=== PATIENT | male | born 1990 | race Caucasian/White ===

== ENCOUNTER 2016-11-04 19:48 | Emergency (ER) | payer OTHER ==
[2016-11-04 20:03] VITALS: BP 148/75; PULSE 75; TEMP 98.7; BMI 24.7
--- NOTE | 2016-11-04 21:55 | PDOC ---
History of Present Illness - General Chief Complaint: Abscess Boil Stated Complaint: Abscess Boil Time Seen by Provider: 11/04/16 21:30 History Source: Patient Exam Limitations: No Limitations - History of Present Illness Initial Comments: 11/04/16 21:47 CC RASH TO LOWER LIP AFTER NICKING IT WHILE SHAVING X 4 DAYS AGO Past History - Past Medical History Allergies/Adverse Reactions: Allergies Allergy/AdvReac Type Severity Reaction Status Date / Time dust AdvReac Uncoded 11/04/16 20:04 seasonal allergies AdvReac Uncoded 11/04/16 20:04 Home Medications: Ambulatory Orders Clonazepam 0.5 mg PO ASDIR 01/07/14 Fluoxetine HCl [Prozac] 20 mg PO DAILY 01/07/14 Psychiatric Problems: Yes (depression/anxiety) - Psycho/Social/Smoking Cessation Hx Anxiety: Yes Suicidal Ideation: No Smoking History: Never smoked Have you smoked in the past 12 months: No Information on smoking cessation initiated: No Hx Alcohol Use: No Drug/Substance Use Hx: No Substance Use Type: None Review of Systems - Review of Systems Constitutional: No: Symptoms Reported HEENTM: Yes: Mouth Swelling. No: Symptoms Reported Respiratory: No: Symptoms reported *Physical Exam - Vital Signs Last Vital Signs Temp Pulse Resp BP Pulse Ox 98.7 F 75 18 148/75 100 11/04/16 20:00 11/04/16 20:00 11/04/16 20:00 11/04/16 20:00 11/04/16 20:00 - Physical Exam General Appearance: Yes: Appropriately Dressed. No: Apparent Distress HEENT: positive: Other (CRUSTED LESION TO AREA JUST INFERIOR RIGHT CENTER LOWER LIP MARGIN IN GERARD AREA) Neck: negative: Lymphadenopathy (R), Lymphadenopathy (L) Respiratory/Chest: positive: Lungs Clear Medical Decision Making - Medical Decision Making 11/04/16 21:49 NO HX OF HERPES SIMPLEX; APPEARS TO BE INFECTED WOUND OPPOSED TO *DC/Admit/Observation/Transfer Diagnosis at time of Disposition: Abrasion of face with infection Qualifiers: Encounter type: initial encounter Qualified Code(s): S10.81XA - Abrasion of other specified part of neck, initial encounter; L08.9 - Local infection of the skin and subcutaneous tissue, unspecified - Discharge Dispostion Disposition: HOME Condition at time of disposition: Stable Admit: No - Referrals Referrals: Man Soler MD [Primary Care Provider] - - Patient Instructions Additional Instructions: WOUND CHECK IN 2 DAYS
== END 2016-11-04 22:03 | disposition home or self-care (01) ==
LOC: JERFT 19:48
DX: S00.511A Abrasion of lip, initial encounter (principal); L08.9 Local infection of the skin and subcutaneous tissue, unspecified; W26.0XXA Contact with knife, initial encounter; Y93.E8 Activity, other personal hygiene; Y92.9 Unspecified place or not applicable
CPT/HCPCS: 99281-25

== ENCOUNTER 2016-12-10 23:04 | Emergency (ER) | payer OTHER ==
[2016-12-10] MEDS ORDERED: IBUPROFEN 600 MG TABLET (FP) PO ONE (23:15)
--- NOTE | 2016-12-10 23:15 | PDOC ---
History of Present Illness - General Chief Complaint: Sore Throat Stated Complaint: FEVER Time Seen by Provider: 12/10/16 23:14 History Source: Patient Exam Limitations: No Limitations - History of Present Illness Initial Comments: 12/10/16 23:19 26-year-old male with no medical history presents to the emergency department complaining of a sore throat with subjective fever since approximately 1400 hrs. yesterday. Patient states his fever is making him exhausted but otherwise he denies headache, dizziness, lightheadedness, visual disturbance, neck pain, back pains, chest pain, shortness of breath, abdominal pains. Patient took 200 of Motrin at approximately 2200 hrs. this evening. 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 Timing/Duration: 24 hours Severity: mild Associated Symptoms: reports: fever/chills, malaise Past History - Past Medical History Allergies/Adverse Reactions: Allergies Allergy/AdvReac Type Severity Reaction Status Date / Time No Known Drug Allergies Allergy Verified 12/10/16 23:46 dust AdvReac Uncoded 12/10/16 23:13 seasonal allergies AdvReac Uncoded 12/10/16 23:13 Home Medications: Ambulatory Orders Amoxicillin - [Amoxicillin 875mg Tablet -] 875 mg PO BID #20 tablet 12/10/16 Psychiatric Problems: Yes (depression/anxiety) - Psycho/Social/Smoking Cessation Hx Anxiety: Yes Suicidal Ideation: No Smoking History: Never smoked Have you smoked in the past 12 months: No Hx Alcohol Use: No Drug/Substance Use Hx: No Substance Use Type: None Review of Systems - Review of Systems Able to Perform ROS?: Yes Comments:: 12/10/16 23:18 CONSTITUTIONAL: Absent: fever, chills, diaphoresis, generalized weakness, malaise, loss of appetite HEENT: +sore throat Absent: rhinorrhea, nasal congestion, throat swelling, difficulty swallowing, mouth swelling, ear pain, eye pain, visual Changes CARDIOVASCULAR: Absent: chest pain, loss of consciousness, palpitations, irregular heart rate, peripheral edema RESPIRATORY: Absent: cough, shortness of breath, dyspnea with exertion, orthopnea, wheezing, stridor, hemoptysis GASTROINTESTINAL: Absent: abdominal pain, abdominal distension, nausea, vomiting, diarrhea, constipation, melena, hematochezia GENITOURINARY: Absent: dysuria, frequency, urgency, hesitancy, hematuria, flank pain, genital pain SKIN: Absent: rash, itching, pallor Is the patient limited Sammarinese proficient: No *Physical Exam - Physical Exam Comments: 12/10/16 23:18 GENERAL: Well developed, well nourished. Awake and alert. No acute distress. HEENT: +erythematous b/l tonsils with exudates Normocephalic, atraumatic. PERRLA, EOMI. No conjunctival pallor. Sclera are non- icteric. Moist mucous membranes. NECK: Supple. Full ROM. No JVD. Carotid pulses 2+ and symmetric, without bruits. No thyromegaly. No lymphadenopathy. CARDIOVASCULAR: Regular rate and rhythm. No murmurs, rubs, or gallops. Distal pulses are 2+ and symmetric. PULMONARY: No evidence of respiratory distress. Lungs clear to auscultation bilaterally. No wheezing, rales or rhonchi. SKIN: Warm and dry. Normal capillary refill. No rashes. No jaundice. NEUROLOGICAL: Alert, awake, appropriate. Cranial nerves 2-12 intact. No deficits to light touch and temperature in face, upper extremities and lower extremities. No motor deficits in the in face, upper extremities and lower extremities. Normoreflexic in the upper and lower extremities. Normal speech. Toes are down- going bilaterally. *DC/Admit/Observation/Transfer Diagnosis at time of Disposition: Strep pharyngitis - Discharge Dispostion Admit: No - Prescriptions Prescriptions: Amoxicillin - [Amoxicillin 875mg Tablet -] 875 mg PO BID #20 tablet - Referrals Referrals: Kole Escobar MD [Staff Physician] - - Patient Instructions Printed Discharge Instructions: DI for Strep Throat Additional Instructions: Tylenol alternating with motrin as needed for pain/fever Rx: Amoxicillin 875mg 1 tablet twice a day until completion Increase fluids Follow up with your physician or the ENT physician listed on your discharge Return to the ER for severe/persistent/worsening symptoms - Post Discharge Activity Work/School Note: Back to School Progress Note - Progress Note Progress Note: Rapid strep was negative. Clinically: Will treat for strep pharyngitis.
[2016-12-10 23:24] VITALS: BP 133/69; PULSE 110; TEMP 101.2; BMI 26.7
--- NOTE | 2016-12-10 23:26 | PDOC ---
*Physical Exam - Vital Signs Last Vital Signs Temp Pulse Resp BP Pulse Ox 101.2 F H 110 H 16 133/69 99 12/10/16 23:05 12/10/16 23:05 12/10/16 23:05 12/10/16 23:05 12/10/16 23:05 - Physical Exam Comments: 12/10/16 23:26 The patient was examined by [LEYLA Miles] under my direct supervision. I personally evaluated the patient. I concur with the above findings and the plan of care. *DC/Admit/Observation/Transfer Diagnosis at time of Disposition: Strep pharyngitis - Referrals Referrals: Kole Escobar MD [Staff Physician] - - Patient Instructions Printed Discharge Instructions: DI for Strep Throat Additional Instructions: Tylenol alternating with motrin as needed for pain/fever Rx: Amoxicillin 875mg 1 tablet twice a day until completion Increase fluids Follow up with your physician or the ENT physician listed on your discharge Return to the ER for severe/persistent/worsening symptoms - Post Discharge Activity
[2016-12-10] MEDS ORDERED: AMOXICILLIN 250 MG CAPSULE PO ONE (23:46)
[2016-12-11] MEDS ORDERED: AMOXICILLIN 500 MG CAPSULE (FP) ONE (00:06)
== END 2016-12-11 00:10 | disposition home or self-care (01) ==
LOC: JER 23:04
DX: J02.0 Streptococcal pharyngitis (principal); B95.5 Unspecified streptococcus as the cause of diseases classified elsewhere
CPT/HCPCS: 87070; 87430; 99282-25

== ENCOUNTER 2016-12-12 23:23 | Emergency (ER) | payer OTHER ==
[2016-12-12 23:30] VITALS: BP 129/80; PULSE 65; TEMP 98.3; BMI 25.7
[2016-12-13] MEDS ORDERED: DEXAMETHASONE SOD PHOSPHATE 10 MG/1 ML VIAL IM ONE (00:20)
--- NOTE | 2016-12-13 00:20 | PDOC ---
History of Present Illness - General History Source: Patient Exam Limitations: No Limitations - History of Present Illness Initial Comments: 12/13/16 00:22 26-year-old male with no medical history presents to the emergency department complaining of sore throat 4 days without fever, chills, nausea/vomiting, neck pains, shortness of breath, chest pain. Patient states his throat still feels sore and has not taking his antibiotics today due to the soreness. <Alice Miles - Last Filed: 12/13/16 02:32> - History of Present Illness Initial Comments: 12/13/16 03:18 Pt seen by Midlevel Provider under my direct supervision. Documentation has been prepared under my direction and personally reviewed by me in its entirety. I attest that this document accurately reflects all work, treatment, procedures and medical decision-making performed. I agree with plan as outlined by Midlevel Provider. <Ray Marrero I - Last Filed: 12/13/16 03:18> - General Chief Complaint: Pain Stated Complaint: PAIN, ACUTE Time Seen by Provider: 12/12/16 23:38 Past History - Past Medical History Psychiatric Problems: Yes (depression/anxiety) - Psycho/Social/Smoking Cessation Hx Anxiety: Yes Suicidal Ideation: No Smoking History: Never smoked Have you smoked in the past 12 months: No Information on smoking cessation initiated: No Hx Alcohol Use: No Drug/Substance Use Hx: No Substance Use Type: None <Alice Miles - Last Filed: 12/13/16 02:32> <Ray Marrero I - Last Filed: 12/13/16 03:18> - Past Medical History Allergies/Adverse Reactions: Allergies Allergy/AdvReac Type Severity Reaction Status Date / Time No Known Drug Allergies Allergy Verified 12/13/16 00:58 dust AdvReac Uncoded 12/13/16 00:58 seasonal allergies AdvReac Uncoded 12/13/16 00:58 Home Medications: Ambulatory Orders Amoxicillin - [Amoxicillin 875mg Tablet -] 875 mg PO BID #20 tablet 12/10/16 Review of Systems - Review of Systems Able to Perform ROS?: Yes Comments:: 12/13/16 00:23 CONSTITUTIONAL: Absent: fever, chills, diaphoresis, generalized weakness, malaise, loss of appetite HEENT: +throat pain Absent: rhinorrhea, nasal congestion, throat swelling, difficulty swallowing, mouth swelling, ear pain, eye pain, visual Changes CARDIOVASCULAR: Absent: chest pain, loss of consciousness, palpitations, irregular heart rate, peripheral edema RESPIRATORY: Absent: cough, shortness of breath, dyspnea with exertion, orthopnea, wheezing, stridor, hemoptysis GASTROINTESTINAL: Absent: abdominal pain, abdominal distension, nausea, vomiting, diarrhea, constipation, melena, hematochezia Is the patient limited Vietnamese proficient: No <Alice Miles - Last Filed: 12/13/16 02:32> *Physical Exam - Vital Signs Last Vital Signs Temp Pulse Resp BP Pulse Ox 98.3 F 65 18 129/80 99 12/12/16 23:28 12/12/16 23:28 12/12/16 23:28 12/12/16 23:28 12/12/16 23:28 - Physical Exam Comments: 12/13/16 00:23 GENERAL: Well developed, well nourished. Awake and alert. No acute distress. HEENT: Tonsil slight erythema/+exudates; Neg CHEERLEADING COACH Normocephalic, atraumatic. PERRLA, EOMI. No conjunctival pallor. Sclera are non- icteric. Moist mucous membranes. Oropharynx is clear. NECK: Supple. Full ROM. No JVD. Carotid pulses 2+ and symmetric, without bruits. No thyromegaly. No lymphadenopathy. CARDIOVASCULAR: Regular rate and rhythm. No murmurs, rubs, or gallops. Distal pulses are 2+ and symmetric. PULMONARY: No evidence of respiratory distress. Lungs clear to auscultation bilaterally. No wheezing, rales or rhonchi. ABDOMINAL: Soft. Non-tender. Non-distended. No rebound or guarding. No organomegaly. Normoactive bowel sounds. MUSCULOSKELETAL Normal range of motion at all joints. No bony deformities or tenderness. No CVA tenderness. EXTREMITIES: No cyanosis. No clubbing. No edema. No calf tenderness. SKIN: Warm and dry. Normal capillary refill. No rashes. No jaundice. <Alice Miles - Last Filed: 12/13/16 02:32> - Vital Signs Last Vital Signs Temp Pulse Resp BP Pulse Ox 98.3 F 65 18 129/80 99 12/12/16 23:28 12/12/16 23:28 12/12/16 23:28 12/12/16 23:28 12/12/16 23:28 <Ray Marrero I - Last Filed: 12/13/16 03:18> ED Treatment Course - Medications Given in the ED: ED Medications Discontinued Medications Generic Name Dose Route Start Last Admin Trade Name Arleen PRN Reason Stop Dose Admin Dexamethasone Sodium Phosphate 10 mg 12/13/16 00:20 12/13/16 00:54 Decadron Injection - IM 12/13/16 00:21 10 mg ONCE ONE Administration Penicillin G Benzathine 1,200,000 unit 12/13/16 01:48 12/13/16 02:03 Bicillin L-A - IM 12/13/16 01:49 1,200,000 unit ONCE ONE Administration <Ray Marrero I - Last Filed: 12/13/16 03:18> *DC/Admit/Observation/Transfer - Discharge Dispostion Admit: No <Alice Miles - Last Filed: 12/13/16 02:32> <Ray Marrero I - Last Filed: 12/13/16 03:18> Diagnosis at time of Disposition: Strep pharyngitis - Discharge Dispostion Disposition: HOME Condition at time of disposition: Stable - Referrals Referrals: Warren Soler MD [Primary Care Provider] - Kole Escobar MD [Staff Physician] - - Patient Instructions Additional Instructions: You received a dose of Bicillin this evening so you no longer have to take your amoxicillin. Gargle with salt water Follow up with Dr. Escobar/ENT Return to the ER for severe/persistent/worsening, symptoms
[2016-12-13] MEDS ORDERED: DEXAMETHASONE SOD PHOSPHATE 10 MG/1 ML VIAL ONE (00:51)
[2016-12-13] MEDS ORDERED: PENICILLIN G BENZATHINE 1,200,000 UNIT/2 ML PFS IM ONE (01:48)
[2016-12-13] MEDS ORDERED: PENICILLIN G BENZATHINE 2,400,000 UNIT/4 ML PFS ONE (01:53)
== END 2016-12-13 02:13 | disposition home or self-care (01) ==
LOC: JER 23:23
PROC: 3E0233Z Introduction of Anti-inflammatory into Muscle, Percutaneous Approach (ICD-10-PCS; principal; 2016-12-12)
PROC: 3E04329 Introduction of Other Anti-infective into Central Vein, Percutaneous Approach (ICD-10-PCS; 2016-12-12)
DX: J02.0 Streptococcal pharyngitis (principal)
CPT/HCPCS: 96372; 99281-25

== ENCOUNTER 2016-12-14 19:25 | Emergency (ER) | payer OTHER ==
[2016-12-14 19:49] VITALS: BP 125/76; PULSE 78; TEMP 99; BMI 25.7
--- NOTE | 2016-12-14 20:39 | PDOC ---
History of Present Illness - General Chief Complaint: Laceration Stated Complaint: ALLERGIC REACTION Time Seen by Provider: 12/14/16 20:25 History Source: Patient Exam Limitations: No Limitations - History of Present Illness Initial Comments: 12/14/16 20:36 Return for rash to hand; feet Timing/Duration: denies: getting worse Past History - Past Medical History Allergies/Adverse Reactions: Allergies Allergy/AdvReac Type Severity Reaction Status Date / Time No Known Drug Allergies Allergy Verified 12/13/16 00:58 dust AdvReac Uncoded 12/13/16 00:58 seasonal allergies AdvReac Uncoded 12/13/16 00:58 Home Medications: Ambulatory Orders NK [No Known Home Medication] 12/14/16 Psychiatric Problems: Yes (depression/anxiety) - Psycho/Social/Smoking Cessation Hx Anxiety: Yes Suicidal Ideation: No Smoking History: Never smoked Have you smoked in the past 12 months: No Hx Alcohol Use: No Drug/Substance Use Hx: No Substance Use Type: None Review of Systems - Review of Systems Constitutional: No: Chills, Fever HEENTM: Yes: Throat Swelling. No: Symptoms Reported Respiratory: No: Symptoms reported, Cough Cardiac (ROS): No: Symptoms Reported *Physical Exam - Vital Signs Last Vital Signs Temp Pulse Resp BP Pulse Ox 99 F 78 16 125/76 98 12/14/16 19:45 12/14/16 19:45 12/14/16 19:45 12/14/16 19:45 12/14/16 19:45 - Physical Exam General Appearance: Yes: Appropriately Dressed HEENT: positive: Other ( red throat) Neck: positive: Lymphadenopathy (R), Lymphadenopathy (L). negative: Tender Integumentary: positive: Other (visecular lesions to palms and feet) Medical Decision Making - Medical Decision Making 12/14/16 20:38 call school to notify of lani *DC/Admit/Observation/Transfer Diagnosis at time of Disposition: Coxsackievirus infection - Discharge Dispostion Disposition: HOME Condition at time of disposition: Stable Admit: No - Patient Instructions Additional Instructions: benadryl 50mg every 6 hours for itch
[2016-12-14] MEDS ORDERED: diphenhydrAMINE HCL 25 MG CAPSULE (FP) PO ONE (20:41)
[2016-12-14] MEDS ORDERED: diphenhydrAMINE HCL 50 MG CAPSULE PO ONE (20:58)
== END 2016-12-14 21:04 | disposition home or self-care (01) ==
LOC: JERFT 19:25
DX: R21 Rash and other nonspecific skin eruption (principal); B97.11 Coxsackievirus as the cause of diseases classified elsewhere; F41.8 Other specified anxiety disorders
CPT/HCPCS: 99281-25